=== PATIENT | male | born 1950 | race Caucasian/White ===

== ENCOUNTER 2018-05-24 19:32 | Emergency (ER) | payer MEDICARE, MEDICAID ==
[~2018-05-24] VITALS: Ht 177.8 cm; Wt 96.0 kg
[~2018-05-24 19:32] MED LIST: ASPI-1159 PO; CALC-37 PO; CALCIUM CHLORIDE 1GM/10ML SYR IV ONE; COR3 PO; DIVA-18 PO; DOCU-150 PO; EPINEPHRINE 0.1MG/ML (1:10,000) 10ML SYR ONE; ETOMIDATE 2MG/ML 10ML VIAL IV ONE; FOLI-43 PO; IPRA3AMP9 HHN; LEVO75TA PO; LORA2VIA33 IJ; OLAN5TAB3 PO; SODIUM BICARBONATE 7.5% 0.9 MEQ/ML 50ML SYR IV ONE; SUCCINYLCHOLINE CHLORIDE 200MG/10ML VIAL IV ONE; TLXL5 GT
[2018-05-24] MEDS ORDERED: SODIUM CHLORIDE 0.9% 1000ML BAG (SEPSIS BOLUS) IV ONE (19:45)
[2018-05-24 20:59] LABS: CLARITY URINE CLEAR (CLEAR); COLOR URINE DARK YELLOW (YELLOW); KETONES URINE TRACE (NEGATIVE); LEUKOCYTE ESTERASE URINE NEGATIVE (NEGATIVE); NITRITE URINE NEGATIVE (NEGATIVE); OCCULT BLOOD URINE 2+ (NEGATIVE); PROTEIN URINE 3+ (NEGATIVE); SPECIFIC GRAVITY URINE 1.035 (1.005-1.030)
[2018-05-24] MEDS ORDERED: NOREPINEPHRINE 4 MG in DEXT 5% WATER 246 ML IV ONE (21:00)
[2018-05-24] MEDS ORDERED: NOREPINEPHRINE 4 MG in DEXT 5% WATER 246 ML IV NR (21:15)
[2018-05-24 21:22] VITALS: BP 70/40
[2018-05-24] MEDS ORDERED: EPINEPHRINE 0.1MG/ML (1:10,000) 10ML SYR ONE ×2 (21:22→21:39)
[2018-05-24 21:28] LABS: EOSINOPHILS % 0.2 % (0.0-5.0); HEMATOCRIT. 43.8 % (42.0-52.0); HEMOGLOBIN. 13.5 g/dL (14.0-18.0); LYMPHOCYTES % 49.7 % (20.0-50.0); MEAN CORPUSCULAR HEMOGLOBIN 30.4 pg (28.0-32.0); MEAN CORPUSCULAR VOLUME 98.6 fL (80.0-94.0); MEAN PLATELET VOLUME 9.6 fl (7.4-10.4); MONOCYTES % 4.3 % (2.0-8.0); NEUTROPHILS % 44.8 % (40.0-76.0); PLATELET 140 x1000/uL (130-400); RED BLOOD CELL COUNT 4.44 mill/uL (4.7-6.1); RED CELL DISTRIBUTION WIDTH 15.9 % (11.6-14.6)
[2018-05-24 21:31] LABS: INR 1.3; PROTHROMBIN TIME 13.1 sec (9.4-11.6)
[2018-05-24 21:39] LABS: CHLORIDE 122 mEq/L (98-107)
== END 2018-05-24 22:35 | disposition expired ==
LOC: ER 19:32 → CANBEDREQ 22:05 → ER 22:35
DX: I46.9 Cardiac arrest, cause unspecified (principal); J44.9 Chronic obstructive pulmonary disease, unspecified; I10 Essential (primary) hypertension; R41.82 Altered mental status, unspecified; R00.0 Tachycardia, unspecified; Z79.899 Other long term (current) drug therapy
CPT/HCPCS: 31500; 36415; 36556; 71045; 80053; 81003; 83605; 84484; 85025; 85610; 87040; 87086; 92950; 93005; 94002; 99291; J0330; J3490; J7030; J7060; A4315